=== PATIENT | female | born 1995 | race Hispanic/Latino ===

== ENCOUNTER 2019-04-26 21:38 | Emergency (ER) | payer SELFPAY ==
[~2019-04-26] VITALS: Ht 157.5 cm; Wt 61.2 kg
--- NOTE | 2019-04-26 23:46 | Diagnostic Imaging Report ---
EXAM: CT Abdomen and Pelvis WITHOUT contrast INDICATION: Suprapubic pain COMPARISON: None. TECHNIQUE: Abdomen and pelvis were scanned utilizing a multidetector helical scanner from the lung base to the pubic symphysis without administration of IV contrast. Absence of intravenous contrast decreases sensitivity for detection of focal lesions and vascular pathology. Coronal and sagittal reformations were obtained. Routine protocol was performed. IV CONTRAST: None ORAL CONTRAST: None COMPLICATIONS: None RADIATION DOSE: Total DLP: 412 mGy*cm Estimated effective dose: (DLP x 0.015 x size factor) mSv CTDIvol has been reviewed. It is below the limits set by the Radiation Protocol Committee (RPC). Dose modulation, iterative reconstruction, and/or weight based adjustment of the mA/kV was utilized to reduce the radiation dose to as low as reasonably achievable. FINDINGS: LINES and TUBES: None. LOWER THORAX: Unremarkable HEPATOBILIARY: No focal hepatic lesions. No biliary ductal dilation. GALLBLADDER: No radio-opaque stones or sludge. No wall thickening. SPLEEN: No splenomegaly. PANCREAS: No focal masses or ductal dilatation. ADRENALS: No adrenal nodules KIDNEYS/URETERS: No hydronephrosis. No cystic or solid mass lesions. No stones. GI TRACT: No abnormal distention, wall thickening, or evidence of bowel obstruction. Appendix is normal. PELVIC ORGANS/BLADDER: Unremarkable. LYMPH NODES: No lymphadenopathy. VESSELS: Unremarkable. PERITONEUM / RETROPERITONEUM: No free air or fluid. BONES: Unremarkable. SOFT TISSUES: Unremarkable. IMPRESSION: No acute abnormalities. Signed by: Hernan Galvan DO on 04/26/2019 11:43 PM
== END 2019-04-27 01:15 | disposition home or self-care (01) ==
LOC: FSED 21:38
DX: R10.13 Epigastric pain (principal); N30.90 Cystitis, unspecified without hematuria; K25.7 Chronic gastric ulcer without hemorrhage or perforation
CPT/HCPCS: 74176; 80048; 81003; 81025; 85025; 99283

== ENCOUNTER 2021-11-23 16:46 | Emergency (ER) | payer SELFPAY ==
[~2021-11-23] VITALS: Ht 157.5 cm; Wt 69.1 kg
[2021-11-23] MEDS ORDERED: FLAGYL375 MG (18:20)
[2021-11-23] MEDS ORDERED: birth control (18:20)
== END 2021-11-23 20:33 | disposition home or self-care (01) ==
LOC: FSED 19:05
DX: R20.0 Anesthesia of skin (principal); R42 Dizziness and giddiness; E28.2 Polycystic ovarian syndrome; Z86.16 Personal history of COVID-19
CPT/HCPCS: 70450; 81025; 99283